=== PATIENT | female | born 1935 | race Caucasian/White ===

== ENCOUNTER 2022-01-21 11:55 | Emergency (ER) | payer OTHER ==
[~2022-01-21] VITALS: Ht 154.9 cm; Wt 53.5 kg
[2022-01-21 12:07] VITALS: BP_SYST 160
[2022-01-21 13:31] LABS: BASOPHILS # (AUTO) 0.1 K/uL (0.0-0.2); BASOPHILS % (AUTO) 0.9 % (0.0-2.0); EOSINOPHILS # (AUTO) 0.2 K/uL (0.0-0.4); EOSINOPHILS % (AUTO) 3.7 % (0.0-4.0); HEMATOCRIT 36.7 % (36-48); HEMOGLOBIN 12.8 g/dL (12.0-16.0); LYMPHOCYTES # (AUTO) 1.8 K/uL (1.0-5.5); MEAN CORPUSCULAR HEMOGLOBIN 31 pg (27-31); MEAN CORPUSCULAR HGB CONC 35 % (32-36); MEAN CORPUSCULAR VOLUME 89 fL (79.0-98.0); MONOCYTES # (AUTO) 0.5 K/uL (0.0-1.0); MONOCYTES % (AUTO) 8.4 % (1.7-9.3); NEUTROPHILS # (AUTO) 3.8 K/uL (1.8-7.7); PLATELET COUNT (AUTO) 269 K/uL (130-430); RED BLOOD CELL COUNT(AUTO) 4.14 MIL/uL (4.2-6.2); RED CELL DISTRIBUTION WIDTH 13.2 % (9.0-15.0); WHITE BLOOD COUNT (AUTO) 6.4 K/uL (4.8-10.8)
[2022-01-21 13:55] LABS: ALANINE AMINOTRANSFERASE 14 U/L (12-78); ANION GAP 11 (5-15); ASPARTATE AMINOTRANSFERASE 26 U/L (10-37); CALCIUM 8.8 mg/dL (8.4-11.0); CHLORIDE 102 mmol/L (98-107); CREATININE 1.02 mg/dL (0.55-1.30); GLUCOSE 126 mg/dL (70-99); SODIUM SERUM 138 mmol/L (136-145); TOTAL BILIRUBIN 0.3 mg/dL (0.0-1.0); UREA NITROGEN, BLOOD 10 mg/dL (8-21)
[2022-01-21 13:56] LABS: ALBUMIN 3.4 g/dL (3.4-4.8)
[2022-01-21 14:09] LABS: POTASSIUM 2.9 mmol/L (3.5-5.1)
[2022-01-21 14:50] LABS: AMYLASE 77 U/L (0-100); C-REACTIVE PROTEIN QUANT 0.8 mg/dL (0-0.5)
[2022-01-21 14:51] LABS: LACTATE DEHYDROGENASE 244 U/L (81-234); LIPASE 154 U/L (73-393)
[2022-01-21 15:52] VITALS: BP_SYST 137
[2022-01-21 16:21] LABS: ACETONE, SERUM NEGATIVE (NEGATIVE)
== END 2022-01-21 15:50 | disposition home or self-care (01) ==
LOC: SED 11:55
DX: R53.1 Weakness (principal); R10.84 Generalized abdominal pain; Z79.899 Other long term (current) drug therapy
CPT/HCPCS: 36415; 71045; 76376; 80053; 82009; 82150; 82550; 83605; 83615; 83690; 84484; 85025; 86140; 93005; 99285